=== PATIENT | female | born 1960 | race Caucasian/White ===

== ENCOUNTER 2024-08-26 08:33 | Day surgery (SDC) | payer BC, MEDICAID ==
[2024-08-26] MEDS ORDERED: LIDOCAINE 1% (10MG/ML) FOR IV START INTRADERMA PRN (09:52)
[2024-08-26 10:02] VITALS: TEMP 97.3
[2024-08-26] MEDS: LACTATED RINGERS 1,000 ML IV SCH (10:12)
[2024-08-26] MEDS: IV FLUID CONTINUATION 1,000 ML IV ONE (10:13)
[2024-08-26] MEDS ORDERED: PROPOFOL 10 MG/ML 20 ML VIAL IV ONE (10:31)
--- NOTE | 2024-08-26 10:39 | P.GSHP ---
History of Present Illness H&P Date: 08/26/24 Chief Complaint: Screening colonoscopy Is a 64-year-old female presents today for screening colonoscopy. Patient denies any significant GI complaints. Past Medical History Past Medical History: Cancer Additional Past Medical History / Comment(s): arrhythmia, not a fib, cervical cancer lasered many years ago History of Any Multi-Drug Resistant Organisms: None Reported Additional Past Surgical History / Comment(s): leep procedure, colonoscopy Past Anesthesia/Blood Transfusion Reactions: No Reported Reaction Smoking Status: Former smoker - Past Family History Mother Family Medical History: Cancer Additional Family Medical History / Comment(s): cervical, Medications and Allergies Home Medications Medication Instructions Recorded Confirmed Type Apixaban [Eliquis] 5 mg PO BID 08/24/24 08/26/24 History Metoprolol Succinate (ER) [Toprol 25 mg PO DAILY 08/24/24 08/26/24 History Xl] Allergies Allergy/AdvReac Type Severity Reaction Status Date / Time No Known Allergies Allergy Verified 08/26/24 09:53 Surgical - Exam Vital Signs Temp Pulse Resp BP Pulse Ox 97.3 F L 64 18 145/78 100 08/26/24 09:58 08/26/24 09:58 08/26/24 09:58 08/26/24 09:58 08/26/24 09:58 - General well developed, well nourished, no distress - Eyes PERRL - ENT normal pinna - Neck no masses - Respiratory normal expansion - Cardiovascular Rhythm: regular - Abdomen Abdomen: soft, non tender Assessment and Plan Assessment: Will perform screening colonoscopy
--- NOTE | 2024-08-26 10:53 | P.OP ---
Date of Procedure: 08/26/24 Preoperative Diagnosis: Screening colonoscopy Postoperative Diagnosis: Rectal polyp Procedure(s) Performed: Colonoscopy Anesthesia: MAC Surgeon: Geeta Geiger Pathology: other (Rectal polyp) Condition: stable Disposition: PACU Description of Procedure: The patient was placed on the endoscopy table in the lateral position. He received IV sedation. Digital rectal exam performed. This revealed no abnormalities. The flexible colonoscope was then placed patient anus passed throughout the entire colon. The ileocecal valve was visualized. The cecum, ascending and transverse colon appeared normal. The descending and sigmoid colon appeared normal. S the scope was then brought back to the rectum and there was a small polyp seen was removed with a cold forcep. Scope was withdrawn from the patient.
[2024-08-26 11:02] VITALS: RESP 16
[2024-08-26 11:11] VITALS: BP 153/67; PULSE 60
== END 2024-08-26 11:34 | disposition home or self-care (01) ==
LOC: ORWHC2ENDO 08:33
PROVIDERS: ATTEND Surgery
DX: Z12.11 Encounter for screening for malignant neoplasm of colon
CPT/HCPCS: 45380; 88305

== ENCOUNTER → 2025-01-25 | Outpatient (CLI) | payer MEDICAID ==
[2025-01-25 19:24] LABS: Basophils # (A) 0.02 X 10*3/uL (0.00-0.10); Basophils % (A) 0.3 %; Eosinophils # (A) 0.05 X 10*3/uL (0.04-0.35); Eosinophils % (A) 0.8 %; HGB 13.2 g/dL (12.0-15.0); Lymphocytes # (A) 1.72 X 10*3/uL (0.90-5.00); MCH 30.9 pg (27.0-32.0); MCV 93.7 FL (80.0-97.0); Mean Platelet Volume 11.2 FL (9.5-12.2); Monocytes # (A) 0.31 X 10*3/uL (0.20-1.00); Monocytes % (A) 4.9 %; NRBC Per 100 WBC 0 X 10*3/uL (0.00-0.01); Neutrophils # (A) 4.26 X 10*3/uL (1.80-7.70); Neutrophils % (A) 66.7 %; Platelet Count 221 X 10*3/uL (140-440); RBC 4.27 X 10*6/uL (4.10-5.20); RDW 13.1 % (11.5-14.5); WBC 6.38 X 10*3/uL (4.50-10.00)
[2025-01-25 19:31] LABS: ALT 32 U/L (8-44); AST 23 U/L (13-35); Albumin 4.2 g/dL (3.8-4.9); Albumin/Globulin Ratio 1.62 Ratio (1.60-3.17); Alkaline Phosphatase 86 U/L (41-126); Calcium 9.4 mg/dL (8.7-10.3); Carbon Dioxide 29.1 mmol/L (21.6-31.8); Chloride 106 mmol/L (96-109); Globulin 2.6 g/dL (1.6-3.3); Glucose 98 mg/dL (70-110); Potassium 4.7 mmol/L (3.5-5.5); Sodium 144 mmol/L (135-145); Total Bilirubin 0.8 mg/dL (0.3-1.2); Total Protein 6.8 g/dL (6.2-8.2)
== END | disposition home or self-care (01) ==
LOC: LABWHC1 12:34
PROVIDERS: ATTEND Family Medicine
DX: I10 Essential (primary) hypertension (principal); I48.19 Other persistent atrial fibrillation
CPT/HCPCS: 36415; 80053; 85025